=== PATIENT | male | born 1950 | race Asian ===

== ENCOUNTER 2016-12-31 07:35 | Outpatient (CLI) | payer MEDICARE, OTHER ==
--- NOTE | 2016-12-31 09:12 | Ultrasound Report ---
AORTA SCREEN: 12/31/2016 CLINICAL INDICATION: Smoking history. TECHNIQUE: Real-time scanning was performed with independent sales representative static images obtained. FINDINGS: The abdominal aorta is normal in caliber, measuring 2.3 cm proximally, 1.8 cm in the mid p ortion, and 1.8 cm distally. The iliacs are normal in caliber. No free fluid is present. IMPRESSION: NO EVIDENCE OF ABDOMINAL AORTIC ANEURYSM. JOB #: [id number] EXT JOB #:[id number]
== END 2016-12-31 07:36 | disposition home or self-care (01) ==
LOC: DI 07:35
PROVIDERS: ATTEND Internal Medicine
DX: Z13.6 Encounter for screening for cardiovascular disorders (principal)
CPT/HCPCS: 76706

== ENCOUNTER 2017-02-17 11:26 | Outpatient (CLI) | payer MEDICARE, OTHER ==
--- NOTE | 2017-02-17 17:16 | CT Report ---
CT CHEST WITHOUT CONTRAST: 02/17/2017 CLINICAL INDICATION: Followup left apical infiltrate. TECHNIQUE: Axial CT images of the chest were obtained without intravenous contrast. [facility]2016 is available, but images are not yet available for direct comparison. If they become available, an addendum will be issued. FINDINGS: The heart and great vessels are unremarkable. No hilar or mediastinal lymphadenopathy is present. Calcified granulomas are noted at the left apex, and fibrosis and emphysema are noted. No suspicious pulmonary nodule or mass lesion is appreciated. No effusion or pneumothorax is seen. Connelly ited evaluation of upper abdominal structures demonstrates a liver cyst. The adrenal glands are unre markable. Osseous structures demonstrate degenerative changes. IMPRESSION: CHANGES OF OLD GRANULOMATOUS DISEASE, EMPHYSEMA, AND FIBROSIS. NO FOCAL INFILTRATE OR S USPICIOUS PULMONARY NODULE IS APPRECIATED. If outside films become available, an addendum will be issued. In accordance with CT protocol optimization, one or more of the following dose reduction techniques w ere utilized for this exam: automated exposure control, adjustment of mA and/or KV based on patient size, or use of iterative reconstructive technique. JOB #: [id number] EXT JOB #:[id number]
== END 2017-02-17 11:27 | disposition home or self-care (01) ==
LOC: DI 11:26
PROVIDERS: ATTEND Internal Medicine
DX: J43.9 Emphysema, unspecified (principal); J84.10 Pulmonary fibrosis, unspecified
CPT/HCPCS: 71250

== ENCOUNTER 2017-03-23 10:52 | Outpatient (CLI) | payer MEDICARE, OTHER ==
--- NOTE | 2017-03-23 13:16 | XRAY Report ---
TWO VIEW CHEST: 03/23/2017 CLINICAL INDICATION: Cough. FINDINGS: Frontal and lateral views of the chest demonstrate a normal cardiac silhouette. The lungs demonstrate emphysema and fibrosis, similar to CT of 02/17/2017. No new infiltrate, effusion, or pneu mothorax is present. IMPRESSION: EMPHYSEMA AND FIBROSIS. JOB #: [id number] EXT JOB #:[id number]
== END 2017-03-23 10:53 | disposition home or self-care (01) ==
LOC: DI.S 10:52
PROVIDERS: ATTEND Nurse Practitioner Family
DX: J43.9 Emphysema, unspecified (principal); J84.10 Pulmonary fibrosis, unspecified; J45.909 Unspecified asthma, uncomplicated
CPT/HCPCS: 71020

== ENCOUNTER 2017-08-10 11:56 | Outpatient (CLI) | payer MEDICARE, OTHER ==
[2017-08-10] MEDS ORDERED: GADOBUTROL 7.5 MMOL/7.5 ML VIAL ONE (12:20)
[2017-08-10 12:31] LABS: CREATININE 1.3 mg/dL (0.6-1.2)
[2017-08-10] MEDS ORDERED: GADOBUTROL 7.5 MMOL/7.5 ML VIAL IVP ONE (13:43)
--- NOTE | 2017-08-11 10:51 | MRI Report ---
EXAM: MRI SOFT TISSUE NECK WITHOUT AND WITH CONTRAST EXAM DATE: 08/10/2017 02:24 PM. CLINICAL HISTORY: Mass palpated on the right side of thyroid/throat. COMPARISON: None. TECHNIQUE: Multiplanar, multisequence T1-weighted and fluid-sensitive MR sequences of the neck soft t issues were performed. Other: None. IV Contrast: 5 mL Gadavist. FINDINGS: The study is limited by patient motion. During the study patient was repositioned after contrast inje ction with the precontrast and post contrast images not being aligned. No mass is present in either parotid gland or submandibular gland. The thyroid gland is not enlarged. No mass is present in the nasopharynx. The parapharyngeal fat is symmetric. No mass is present in the floor of mouth. No mass is seen in the region of either palatine tonsil. No bulky or cystic/necrotic lymphadenopathy is identified along either internal jugular chain. No marker is identified. No enhancing mass is identified in the visualized brain parenchyma. IMPRESSION: 1. The study is significantly limited by patient motion degradation. 2. No suspicious soft tissue mass is identified in the neck. 3. No bulky lymphadenopathy is seen in the neck. 4. No focal fluid collection to suggest abscess is present in the neck. [facility] Referring Provider Line: [phone] SITE ID: [id number]
== END 2017-08-10 11:57 | disposition home or self-care (01) ==
LOC: LAB 11:56
PROVIDERS: ATTEND Nurse Practitioner Family
DX: R22.1 Localized swelling, mass and lump, neck (principal)
CPT/HCPCS: 36415; 70543; 82565; A9585

== ENCOUNTER 2018-01-07 12:17 | Outpatient (CLI) | payer MEDICARE, OTHER ==
--- NOTE | 2018-01-09 01:36 | Ultrasound Report ---
Procedure Date: 01/07/2018 Accession Number: [id number] / [id number] Procedure: US - Carotid Doppler Complete CPT Code: FULL RESULT: EXAM: CAROTID DOPPLER ULTRASOUND EXAM DATE: 01/07/2018 01:34 PM. CLINICAL HISTORY: Vertigo, headaches. COMPARISON: MR neck 08/10/2017. TECHNIQUE: Real-time sonographic vascular imaging was performed by the foot miter operator through the carotid arterial system with a linear transducer utilizing color-flow, Doppler flow and spectral analysis. Multiple technical account representative static images were saved for review. FINDINGS: Right: RCCA Prox: PSV 96 cm/sec. RCCA Dist: PSV 64 cm/sec, EDV 18 cm/sec. RECA: PSV 90 cm/sec. R Bulb: PSV 57 cm/sec, EDV 17 cm/sec, ICA/CCA ratio 0.89. JEFF Prox: PSV 48 cm/sec, EDV 17 cm/sec, ICA/CCA ratio 0.75. JEFF Mid: PSV 49 cm/sec, EDV 17 cm/sec, ICA/CCA ratio 0.76. JEFF Dist: PSV 65 cm/sec, EDV 24 cm/sec, ICA/CCA ratio 1.0. RVA: PSV 48 cm/sec. RVA flow direction: Antegrade. Left: LCCA Prox: PSV 99 cm/sec. LCCA Dist: PSV 74 cm/sec, EDV 15 cm/sec. LECA: PSV 85 cm/sec. L Bulb: PSV 57 cm/sec, EDV 14 cm/sec, ICA/CCA ratio 0.77. LICA Prox: PSV 37 cm/sec, EDV 13 cm/sec, ICA/CCA ratio 0.50. LICA Mid: PSV 55 cm/sec, EDV 22 cm/sec, ICA/CCA ratio 0.74. LICA Dist: PSV 58 cm/sec, EDV 22 cm/sec, ICA/CCA ratio 0.78. LVA: PSV 62 cm/sec. LVA flow direction: Antegrade. Other: Cardiac arrhythmia. IMPRESSION: Negative carotid ultrasound. No hemodynamically significant stenosis seen. Validated velocity measurements with angiographic measurements and velocity criteria are extrapolated from diameter data as defined by the Society of Radiologists in Ultrasound Consensus Conference Radiology 2003; 229;340-346. [facility]
== END 2018-01-07 12:18 | disposition home or self-care (01) ==
LOC: DI 12:17
PROVIDERS: ATTEND Nurse Practitioner Family
DX: R42 Dizziness and giddiness (principal); R51 Headache
CPT/HCPCS: 93880

== ENCOUNTER 2018-06-09 10:35 | Outpatient (CLI) | payer MEDICARE, OTHER | END 2018-06-09 10:36 | disposition home or self-care (01) | LOC: LAB.F 10:35 | PROVIDERS: ATTEND Internal Medicine Critical Care Medicine | DX: R91.8 Other nonspecific abnormal finding of lung field (principal) | CPT/HCPCS: 36415; 80053; 81599; 85651; 86021; 86038; 86140; 86200; 86430 ==

== ENCOUNTER 2018-06-12 10:12 | Outpatient (CLI) | payer MEDICARE, OTHER ==
[2018-06-12 11:44] LABS: ALBUMIN 3.5 g/dL (3.2-5.5); ALBUMIN/GLOBULIN RATIO 1.3 (1.0-2.2); ALKALINE PHOSPHATASE 53 IU/L (42-121); ALT ALANINE AMINOTRANSFERASE 23 IU/L (10-60); AST ASPARTATE AMINOTRANSFERASE 21 IU/L (10-42); BILIRUBIN,TOTAL 0.7 mg/dL (0.2-1.0); BUN - BLOOD UREA NITROGEN 21 mg/dL (6-20); CALCIUM 8.9 mg/dL (8.5-10.3); CARBON DIOXIDE - CO2 30 mmol/L (21-32); CHLORIDE 104 mmol/L (101-111); GFR - MDRD 74 (>89); GLUCOSE 76 mg/dL (70-100); SODIUM 139 mmol/L (135-145); TOTAL PROTEIN 6.1 g/dL (6.7-8.2)
[2018-06-12 11:55] LABS: CRP - C-REACTIVE PROTEIN < 1.0 mg/dL (0-1.0)
[2018-06-12 12:13] LABS: RHEUMATOID FACTOR NEGATIVE (Negative)
== END 2018-06-12 10:13 | disposition home or self-care (01) ==
LOC: LAB 10:12
PROVIDERS: ATTEND Internal Medicine Critical Care Medicine
DX: R91.8 Other nonspecific abnormal finding of lung field (principal)
CPT/HCPCS: 36415; 80053; 81599; 85651; 86021; 86038; 86140; 86200; 86430; 87070; 87205

== ENCOUNTER 2018-06-14 09:00 | Outpatient (CLI) | payer MEDICARE, OTHER | END 2018-06-14 23:59 | disposition home or self-care (01) | LOC: LAB.R 09:00 | PROVIDERS: ATTEND Internal Medicine Critical Care Medicine | DX: R91.8 Other nonspecific abnormal finding of lung field (principal) | CPT/HCPCS: 81599; 87070; 87205 ==

== ENCOUNTER 2018-08-15 08:11 | Outpatient (CLI) | payer MEDICARE, OTHER | END 2018-08-15 08:12 | disposition home or self-care (01) | LOC: LAB.F 08:11 | PROVIDERS: ATTEND Internal Medicine Endocrinology, Diabetes & Metabolism | DX: E29.1 Testicular hypofunction (principal) | CPT/HCPCS: 36415; 84270; 84402; 84403 ==

== ENCOUNTER 2018-09-22 17:11 | Outpatient (CLI) | payer MEDICARE, OTHER ==
--- NOTE | 2018-09-25 10:13 | Ultrasound Report ---
Reason: LOWER URINARY TRACT SYMPTOMS DUE TO BENIGN PROSTAT Procedure Date: 09/22/2018 Accession Number: [id number] / [id number] Procedure: US - Bladder CPT Code: FULL RESULT: EXAM: PELVIS ULTRASOUND, LIMITED EXAM DATE: 09/22/2018 05:47 PM. CLINICAL HISTORY: Lower urinary tract symptoms due to benign prostatic hypertrophy. COMPARISON: None. TECHNIQUE: Real-time scanning was performed with static images obtained. FINDINGS: Ultrasound of the bladder is performed with a prevoid volume of 350 mL, 9.9 x 7.6 x 8.8 cm, with the bladder wall thickened and trabeculated. Bilateral ureteral jets are identified. The extracystic prostate measures 5.9 x 5.8 x 5.6 cm for a volume of 101 mL. Within the bladder is the suggestion of a 3.7 x 2.9 x 5.1 cm mass which demonstrates vascularity by color Doppler. It is unclear whether this is in contiguity with the prostate, i.e., prostatic hypertrophy lifting the bladder base or separate. IMPRESSION: Additional imaging is necessary to clarify the above findings. The patient should return for additional ultrasound imaging by the radiologist to clarify the findings. [facility]
== END 2018-09-22 17:12 | disposition home or self-care (01) ==
LOC: DI 17:11
PROVIDERS: ATTEND Internal Medicine
DX: N40.1 Benign prostatic hyperplasia with lower urinary tract symptoms (principal)
CPT/HCPCS: 76857

== ENCOUNTER 2018-09-29 12:07 | Outpatient (CLI) | payer MEDICARE, OTHER ==
--- NOTE | 2018-09-29 15:25 | Ultrasound Report ---
Reason: LOWER URINARY TRACT SYMPTOMS DUE TO BENIGN PROSTAT Procedure Date: 09/29/2018 Accession Number: [id number] / [id number] Procedure: US - Bladder CPT Code: FULL RESULT: EXAM: PELVIS ULTRASOUND, LIMITED EXAM DATE: 09/29/2018 12:35 PM. CLINICAL HISTORY: Lower urinary tract symptoms due to benign prostatic hypertrophy. COMPARISON: BLADDER 09/22/2018 5:19 PM. TECHNIQUE: Real-time scanning was performed with static images obtained. FINDINGS: The study is interpreted in conjunction with initial ultrasound images obtained 09/22/2018. Additional real-time images are obtained by the radiologist. These demonstrate the bladder mass to be in contiguity with the prostate, favoring a prostatic origin. IMPRESSION: Markedly enlarged prostate. [facility]
== END 2018-09-29 12:08 | disposition home or self-care (01) ==
LOC: DI 12:07
PROVIDERS: ATTEND Internal Medicine
DX: Z01.818 Encounter for other preprocedural examination (principal); N40.1 Benign prostatic hyperplasia with lower urinary tract symptoms
CPT/HCPCS: 76857

== ENCOUNTER 2018-12-29 08:48 | Outpatient (CLI) | payer MEDICARE, OTHER | END 2018-12-29 08:49 | disposition home or self-care (01) | LOC: LAB.F 08:48 | PROVIDERS: ATTEND Physician Assistant | DX: R79.89 Other specified abnormal findings of blood chemistry (principal) | CPT/HCPCS: 36415; 84153; 84403 ==

== ENCOUNTER 2019-01-01 09:32 | Outpatient (CLI) | payer MEDICARE, OTHER ==
[2019-01-01 18:20] LABS: PSA TOTAL 10.982 ng/mL (0.000-2.000)
== END 2019-01-01 09:33 | disposition home or self-care (01) ==
LOC: LAB.F 09:32
PROVIDERS: ATTEND Physician Assistant
DX: R79.89 Other specified abnormal findings of blood chemistry (principal)
CPT/HCPCS: 36415; 84153; 84403

== ENCOUNTER 2019-02-19 11:06 | Outpatient (CLI) | payer MEDICARE, OTHER ==
[2019-02-19 17:58] LABS: CALCIUM 8.9 mg/dL (8.5-10.3); CREATININE 1.1 mg/dL (0.6-1.2)
[2019-02-19 18:31] LABS: HB2 TOTAL 13.5 g/dL; HEMOGLOBIN A1C 0.64 g/dL; HEMOGLOBIN A1C % 6.5 % (4.6-6.2)
== END 2019-02-19 11:07 | disposition home or self-care (01) ==
LOC: LAB.S 11:06
PROVIDERS: ATTEND Internal Medicine Endocrinology, Diabetes & Metabolism
DX: E11.65 Type 2 diabetes mellitus with hyperglycemia (principal); M81.0 Age-related osteoporosis without current pathological fracture
CPT/HCPCS: 36415; 80048; 83036

== ENCOUNTER 2019-03-10 11:24 | Outpatient (CLI) | payer MEDICARE, OTHER ==
[2019-03-10 11:50] LABS: HGB - HEMOGLOBIN 13.1 g/dL (14.0-18.0); MEAN CORPUSCULAR HEMOGLOBIN 23.2 pg (27.0-31.0); MEAN CORPUSCULAR HGB CONC 30.9 g/dL (32.0-36.0); MEAN CORPUSCULAR VOLUME 75.2 fL (80.0-94.0); MEAN PLATELET VOLUME 11.7 fL (7.4-11.4); RED BLOOD COUNT 5.64 10^6/uL (4.70-6.10); RED CELL DISTRIBUTION WIDTH 17.7 % (12.0-15.0); WHITE BLOOD COUNT 13.8 x10^3/uL (4.8-10.8)
== END 2019-03-10 11:25 | disposition home or self-care (01) ==
LOC: LAB 11:24
PROVIDERS: ATTEND Physician Assistant
DX: Z01.818 Encounter for other preprocedural examination (principal)
CPT/HCPCS: 36415; 80048; 85027; 93005

== ENCOUNTER 2019-08-15 09:54 | Outpatient (CLI) | payer MEDICARE, OTHER ==
[2019-08-15 18:04] LABS: HB2 TOTAL 12.9 g/dL; HEMOGLOBIN A1C 0.6 g/dL; HEMOGLOBIN A1C % 6.4 % (4.6-6.2)
[2019-08-15 18:10] LABS: ALBUMIN 3.9 g/dL (3.2-5.5); ALBUMIN/GLOBULIN RATIO 1.4 (1.0-2.2); BILIRUBIN,TOTAL 0.6 mg/dL (0.2-1.0); CALCIUM 8.9 mg/dL (8.5-10.3); TOTAL PROTEIN 6.6 g/dL (6.7-8.2)
== END 2019-08-15 09:55 | disposition home or self-care (01) ==
LOC: LAB.S 09:54
PROVIDERS: ATTEND Internal Medicine Endocrinology, Diabetes & Metabolism
DX: M81.0 Age-related osteoporosis without current pathological fracture (principal); E11.65 Type 2 diabetes mellitus with hyperglycemia; E55.9 Vitamin D deficiency, unspecified
CPT/HCPCS: 36415; 80053; 82306; 83036; 83970

== ENCOUNTER 2021-06-05 10:37 | Outpatient (CLI) | payer MEDICARE, OTHER ==
[2021-06-05 15:53] LABS: ESTIMATED AVERAGE GLUCOSE 134 mg/dL (70-100); HEMOGLOBIN A1c% 6.3 % (4.27-6.07)
== END 2021-06-05 10:38 | disposition home or self-care (01) ==
LOC: LAB.S 10:37
DX: E11.9 Type 2 diabetes mellitus without complications (principal)
CPT/HCPCS: 36415; 83036

== ENCOUNTER 2021-12-14 13:36 | Outpatient (CLI) | payer MEDICARE ==
[2021-12-14 19:59] LABS: BASOPHILS # (AUTO) 0.1 10^3/uL (0.0-0.1); BASOPHILS % (AUTO) 0.5 %; EOSINOPHILS # (AUTO) 0.1 10^3/uL (0.0-0.7); EOSINOPHILS % (AUTO) 0.5 %; HCT - HEMATOCRIT 39.7 % (42.0-52.0); LYMPHOCYTES # (AUTO) 0.5 10^3/uL (1.5-3.5); LYMPHOCYTES % (AUTO) 4.1 %; MEAN CORPUSCULAR HEMOGLOBIN 22.9 pg (27.0-31.0); MEAN CORPUSCULAR HGB CONC 30.2 g/dL (32.0-36.0); MEAN CORPUSCULAR VOLUME 75.6 fL (80.0-94.0); MONOCYTES # (AUTO) 0.7 10^3/uL (0.0-1.0); NEUTROPHILS # (AUTO) 10.6 10^3/uL (1.5-6.6); NEUTROPHILS % (AUTO) 88.2 %; PLT - PLATELET COUNT 196 10^3/uL (130-450); RED BLOOD COUNT 5.25 10^6/uL (4.70-6.10)
[2021-12-14 20:14] LABS: ALBUMIN 3.5 g/dL (3.2-5.5); ALBUMIN/GLOBULIN RATIO 1.3 (1.0-2.2); ALKALINE PHOSPHATASE 48 IU/L (42-121); ALT ALANINE AMINOTRANSFERASE 17 IU/L (10-60); AST ASPARTATE AMINOTRANSFERASE 17 IU/L (10-42); BILIRUBIN,TOTAL 0.5 mg/dL (0.2-1.0); BUN - BLOOD UREA NITROGEN 25 mg/dL (6-20); CALCIUM 8.8 mg/dL (8.5-10.3); CARBON DIOXIDE - CO2 27 mmol/L (21-32); CHLORIDE 104 mmol/L (101-111); CHOL/HDL RATIO 3.2 (<5.0); CHOLESTEROL 235 mg/dL; CREATININE 1.2 mg/dL (0.6-1.2); GFR - MDRD 60 (>89); GLUCOSE 157 mg/dL (70-100); HDL CHOLESTEROL 74 mg/dL; LDL CHOLESTEROL,CALCULATED 118 mg/dL; LDL/HDL RATIO 1.6 (<3.6); POTASSIUM 3.7 mmol/L (3.5-5.0); SODIUM 141 mmol/L (135-145); TOTAL PROTEIN 6.1 g/dL (6.7-8.2); TRIGLYCERIDES 213 mg/dL; URIC ACID 4.3 mg/dL (2.6-7.2); VLDL CHOLESTEROL 43 mg/dL
[2021-12-14 23:03] LABS: ESTIMATED AVERAGE GLUCOSE 134 mg/dL (70-100); HEMOGLOBIN A1c% 6.3 % (4.27-6.07)
== END 2021-12-14 13:37 | disposition home or self-care (01) ==
LOC: LAB.S 13:36
PROVIDERS: ATTEND Internal Medicine
DX: E11.9 Type 2 diabetes mellitus without complications (principal); M10.00 Idiopathic gout, unspecified site; R97.20 Elevated prostate specific antigen [PSA]
CPT/HCPCS: 36415; 80053; 80061; 83036; 83721; 84153; 84550; 85025

== ENCOUNTER 2022-04-22 09:22 | Outpatient (CLI) | payer MEDICARE ==
[2022-04-22 14:49] LABS: CALCIUM 8.8 mg/dL (8.5-10.3); CREATININE 1.3 mg/dL (0.6-1.2); POTASSIUM 3.7 mmol/L (3.5-5.0)
[2022-04-22 20:57] LABS: ESTIMATED AVERAGE GLUCOSE 123 mg/dL (70-100); HEMOGLOBIN A1c% 5.9 % (4.27-6.07)
== END 2022-04-22 09:23 | disposition home or self-care (01) ==
LOC: LAB.S 09:22
PROVIDERS: ATTEND Registered Nurse
DX: E11.9 Type 2 diabetes mellitus without complications (principal); R60.0 Localized edema
CPT/HCPCS: 36415; 80048; 83036; 85379

== ENCOUNTER 2022-04-27 11:16 | Outpatient (CLI) | payer MEDICARE ==
--- NOTE | 2022-04-27 12:06 | Ultrasound Report ---
PROCEDURE: Duplex Ext Veins Left INDICATIONS: EDEMA TECHNIQUE: Real-time imaging, as well as color and pulse Doppler interrogation, were performed of the lower extr emity deep veins from the inguinal ligament to the popliteal fossa. COMPARISON: None. FINDINGS: The deep veins are normally compressible, and free of intraluminal thrombus. Color and pu lse Doppler demonstrate normal phasic intraluminal flow. There is normal augmentation response to di stal compression maneuver. IMPRESSION: No deep venous thrombosis. Reviewed by: Yahaira Chong MD on 04/27/2022 12:05 PM PDT Approved by: Yahaira Chong MD on 04/27/2022 12:05 PM PDT Station ID: [id number]
== END 2022-04-27 11:17 | disposition home or self-care (01) ==
LOC: DI 11:16
PROVIDERS: ATTEND Registered Nurse
DX: R60.0 Localized edema (principal)

== ENCOUNTER 2022-09-03 08:00 | Outpatient (CLI) | payer MEDICARE ==
--- NOTE | 2022-09-03 16:46 | XRAY Report ---
PROCEDURE: Elbow 2 View LT INDICATIONS: LEFT ELBOW INJURY TECHNIQUE: 2 views of the elbow were acquired. COMPARISON: None FINDINGS: Bones: No fractures or dislocations. No suspicious bony lesions. Soft tissues: No elbow joint effusion. No suspicious soft tissue calcifications. IMPRESSION: No visualized acute fracture or dislocation. However, occult injury cannot be excluded. Recommend leydi rt interval imaging follow-up in 7-10 days as clinically indicated for additional evaluation. Reviewed by: Yahaira Chong MD on 09/03/2022 4:45 PM PST Approved by: Yahaira Chong MD on 09/03/2022 4:45 PM PST Station ID: [id number]
== END 2022-09-03 23:59 | disposition home or self-care (01) ==
LOC: DI.S 08:00
PROVIDERS: ATTEND Physician Assistant
DX: S51.012A Laceration without foreign body of left elbow, initial encounter (principal); M81.0 Age-related osteoporosis without current pathological fracture

== ENCOUNTER 2023-08-12 14:32 | Emergency (ER) | payer MEDICARE ==
[2023-08-12] MEDS ORDERED: SODIUM CHLORIDE 0.9% 1,000 ML IV STA ×2 (14:44→15:24)
[2023-08-12 15:06] LABS: BASOPHILS # (AUTO) 0.1 10^3/uL (0.0-0.1); BASOPHILS % (AUTO) 0.4 %; EOSINOPHILS % (AUTO) 0.3 %; HCT - HEMATOCRIT 43.1 % (42.0-52.0); HGB - HEMOGLOBIN 12.7 g/dL (14.0-18.0); LYMPHOCYTES # (AUTO) 0.5 10^3/uL (1.5-3.5); LYMPHOCYTES % (AUTO) 4.1 %; MEAN CORPUSCULAR HEMOGLOBIN 22.5 pg (27.0-31.0); MEAN CORPUSCULAR HGB CONC 29.5 g/dL (32.0-36.0); MEAN CORPUSCULAR VOLUME 76.3 fL (80.0-94.0); MONOCYTES # (AUTO) 0.8 10^3/uL (0.0-1.0); MONOCYTES % (AUTO) 6.6 %; NEUTROPHILS % (AUTO) 87.5 %; PLT - PLATELET COUNT 217 10^3/uL (130-450); RED BLOOD COUNT 5.65 10^6/uL (4.70-6.10); WHITE BLOOD COUNT 11.5 x10^3/uL (4.8-10.8)
[2023-08-12 15:33] LABS: ALBUMIN 3.9 g/dL (3.2-5.5); ALBUMIN/GLOBULIN RATIO 1.9 (1.0-2.2); BILIRUBIN,TOTAL 0.6 mg/dL (0.2-1.0); CALCIUM 9.2 mg/dL (8.5-10.3); CREATININE 1.2 mg/dL (0.6-1.3)
[2023-08-12 15:39] LABS: TROPONIN I HIGH SENSITIVITY 205.4 ng/L (2.3-19.7)
--- NOTE | 2023-08-12 15:52 | XRAY Report ---
PROCEDURE: Chest 1V INDICATIONS: near syncope TECHNIQUE: One view of the chest was acquired. COMPARISON: CT chest 02/17/2017. FINDINGS: Surgical changes and devices: None. Lungs and pleura: No pleural effusions or pneumothorax. Lungs are clear. Mediastinum: Mediastinal contours appear normal. Heart size is mildly enlarged. Bones and chest wall: No suspicious bony lesions. Overlying soft tissues appear unremarkable. IMPRESSION: No acute cardiopulmonary process. Reviewed by: Yahaira Chong MD on 08/12/2023 3:50 PM [facility] Approved by: Yahaira Chong MD on 08/12/2023 3:50 PM [facility] Station ID: [id number]
[2023-08-12 15:53] LABS: PHOSPHORUS 4.3 mg/dL (2.5-5.0)
[2023-08-12] MEDS ORDERED: METOPROLOL 5 MG/5 ML VIAL IVP STA (16:15)
--- NOTE | 2023-08-12 16:16 | ED Physician Documentation ---
History of Present Illness - Stated complaint Stated Complaint: HIGH HR - Chief complaint Chief Complaint: Cardiac - History obtained from History obtained from: Patient, Family - History of Present Illness Timing: How many days ago (2) Pain level max: 0 Pain level now: 0 - Additonal information Additional information: 72-year-old male presents to the emergency department stating for the past 2 to 3 days he has had intermittent elevations of his heart rate. This has been accompanied by lightheadedness, dizziness and near syncope. No chest pain. He has felt occasionally short of breath. Does not have any cardiac history. Has never seen a early childhood associate teacher. No cough. No congestion. No fevers. No medication changes. Patient is a former smoker. Has a history of hypertension, asthma and diabetes. Review of Systems Constitutional: denies: Fever, Chills Ears: denies: Ear pain Nose: denies: Rhinorrhea / runny nose, Congestion GI: denies: Vomiting, Diarrhea Skin: denies: Rash Musculoskeletal: denies: Neck pain, Back pain Neurologic: denies: Headache, Head injury PD PAST MEDICAL HISTORY - Past Medical History Past Medical History: Yes Cardiovascular: Hypertension Respiratory: Asthma, Shortness of breath Neuro: None Endocrine/Autoimmune: Type 2 diabetes HEENT: None Musculoskeletal: Gout - Past Surgical History Past Surgical History: Yes Ortho: Other HEENT: Cataracts - Present Medications Home Medications: Ambulatory Orders Medication Instructions Recorded Confirmed Albuterol 2.5 mg INH Q4H PRN 09/12/18 08/12/23 Budesonide/Formoterol Fumarate 10.2 gm IH BID 09/12/18 03/01/19 [Symbicort 160-4.5 Mcg Inhaler] Calcium Carbonate/Vitamin D3 1 each PO DAILY 09/12/18 08/12/23 [Calcium 250-D Tablet] Cholecalciferol (Vitamin D3) 1,000 unit PO TID 09/12/18 08/12/23 [Vitamin D3] Theophylline [Theodur] 300 mg PO BID 09/12/18 03/01/19 allopurinoL [Allopurinol] 300 mg PO DAILY PM 09/12/18 08/12/23 predniSONE [Prednisone] 12 mg PO TID 09/12/18 08/12/23 Clobetasol 0.05% Oint [Temovate 1 applic TOP DAILY 08/12/23 08/12/23 0.05% Oint] Denosumab [Prolia] 1 syr INJ UD 08/12/23 08/12/23 Fluocinonide 0.05% Cream [Lidex 1 appful TOP DAILY 08/12/23 08/12/23 0.05% Cream] Losartan Potassium 25 mg PO DAILY 08/12/23 08/12/23 - Allergies Allergies/Adverse Reactions: Allergies Allergy/AdvReac Type Severity Reaction Status Date / Time ciprofloxacin [From Cipro] Allergy Itching Verified 08/12/23 15:43 egg Allergy Unknown Verified 08/12/23 15:43 nuts Allergy Unknown Uncoded 08/12/23 15:43 seafood Allergy Unknown Uncoded 08/12/23 15:43 - Social History Does the pt smoke?: Yes Smoking Status: Former smoker Does the pt drink ETOH?: No Does the pt have substance abuse?: No - Immunizations Immunizations are current?: Yes PD ED PE NORMAL - Vitals Vital signs reviewed: Yes - General General: Alert and oriented X 3, No acute distress - HEENT HEENT: PERRL, Moist mucous membranes - Neck Neck: Supple, no meningeal sign - Cardiac Cardiac: Other (irregularly irregular) - Respiratory Respiratory: No respiratory distress, Clear bilaterally - Abdomen Abdomen: Soft, Non tender, Non distended - Derm Derm: Warm and dry - Extremities Extremities: No edema, No calf tenderness / cord - Neuro Neuro: Alert and oriented X 3 - Psych Psych: Normal mood, Normal affect Results - Vitals Vitals: Vital Signs - 24 hr 08/12/23 08/12/23 08/12/23 14:37 15:48 17:00 Temperature 36.8 C Heart Rate 95 82 112 H Respiratory 16 13 19 Rate Blood Pressure 138/92 H 140/97 H 146/82 H O2 Saturation 98 100 100 08/12/23 08/12/23 19:00 21:00 Temperature Heart Rate 97 106 H Respiratory 19 15 Rate Blood Pressure 122/89 H 98/67 O2 Saturation 96 98 Oxygen O2 Source Room air - EKG (time done) 1535 EKG releavant findings:: EKG personally interpreted by author of this note. Relevant findings are: Rate: Rate (enter#) (85) Rhythm: Other (sinus rhythm/a fib) [place]: Normal QRS: Normal Ischemia: Non specific changes - Labs Labs: Laboratory Tests 08/12/23 08/12/23 08/12/23 14:59 14:59 14:59 WBC 11.5 H RBC 5.65 Hgb 12.7 L Hct 43.1 MCV 76.3 L MCH 22.5 L MCHC 29.5 L RDW 17.0 H Plt Count 217 Neut # (Auto) 10.0 H Lymph # (Auto) 0.5 L [place] # (Auto) 0.8 Eos # (Auto) 0.0 Baso # (Auto) 0.1 Absolute Nucleated RBC 0.00 Nucleated RBC % 0.0 Sodium 141 Potassium 4.0 Chloride 104 Carbon Dioxide 32 Anion Gap 5.0 L BUN 25 H Creatinine 1.2 Estimated GFR (MDRD) 59 L Glucose 108 H Calcium 9.2 Phosphorus 4.3 Magnesium 2.0 Total Bilirubin 0.6 AST 16 ALT 13 Alkaline Phosphatase 38 L Troponin I High Sens 205.4 H* Total Protein 6.0 L Albumin 3.9 Globulin 2.1 Albumin/Globulin Ratio 1.9 Lipase 19 08/12/23 16:39 WBC RBC Hgb Hct MCV MCH MCHC RDW Plt Count Neut # (Auto) Lymph # (Auto) [place] # (Auto) Eos # (Auto) Baso # (Auto) Absolute Nucleated RBC Nucleated RBC % Sodium Potassium Chloride Carbon Dioxide Anion Gap BUN Creatinine Estimated GFR (MDRD) Glucose Calcium Phosphorus Magnesium Total Bilirubin AST ALT Alkaline Phosphatase Troponin I High Sens 226.2 H* Total Protein Albumin Globulin Albumin/Globulin Ratio Lipase - Rads (name of study) cxr Relevant Findings:: Final report received, See rad report (No acute cardiopulmonary process. ) PD Medical Decision Making - ED course Complexity details: reviewed results, re-evaluated patient, considered differential, d/w patient, d/w family ED course: Patient is a 72-year-old male who presents to the emergency department with an irregular heartbeat, lightheadedness, and near syncope. He is found to have an irregular heartbeat, appears to go in and out of atrial fibrillation on the monitor. He has an elevation of his high-sensitivity troponin. Does not have any cardiac history. Patient has a continued increasing elevation of his high sensitivity troponin on repeat testing. Consistent with NSTEMI. Given his new onset atrial fibrillation and NSTEMI. Patient will need to be transferred for cardiac care. Patient was started on Lovenox. Given aspirin. Started on metoprolol for rate control. No beds are available in the region, he will be boarded in the emergency department. Please see Dr. Ramos's note for any care overnight. Patient signed out to Dr. Ramos. This document was made in part using voice recognition software. While efforts are made to proofread this document, sound alike and grammatical errors may occur. Departure - Departure Disposition: 02 Transfer Acute Care Hosp Clinical Impression: NSTEMI (non-ST elevated myocardial infarction), New onset a-fib Condition: Stable Forms: PCP List
[2023-08-12] MEDS ORDERED: ASPIRIN CHEW 81 MG TABLET PO STA (16:30)
[2023-08-12] MEDS ORDERED: ENOXAPARIN 80 MG/0.8 ML SYRINGE SUBQ STA (16:31)
[2023-08-12] MEDS ORDERED: METOPROLOL TARTRATE 50 MG TABLET PO STA (19:36)
[2023-08-12] MEDS ORDERED: ACETAMINOPHEN 500 MG TABLET PO PRN (22:56)
[2023-08-12] MEDS ORDERED: ONDANSETRON 4 MG/2 ML VIAL IVP PRN (22:56)
[2023-08-13 06:17] LABS: BASOPHILS # (AUTO) 0.1 10^3/uL (0.0-0.1); BASOPHILS % (AUTO) 0.8 %; EOSINOPHILS # (AUTO) 0.1 10^3/uL (0.0-0.7); EOSINOPHILS % (AUTO) 1.3 %; HCT - HEMATOCRIT 42.7 % (42.0-52.0); HGB - HEMOGLOBIN 12.7 g/dL (14.0-18.0); LYMPHOCYTES % (AUTO) 9.2 %; MEAN CORPUSCULAR HEMOGLOBIN 22.8 pg (27.0-31.0); MEAN CORPUSCULAR HGB CONC 29.7 g/dL (32.0-36.0); MEAN CORPUSCULAR VOLUME 76.5 fL (80.0-94.0); MONOCYTES # (AUTO) 1.2 10^3/uL (0.0-1.0); MONOCYTES % (AUTO) 10.8 %; NEUTROPHILS # (AUTO) 8.5 10^3/uL (1.5-6.6); NEUTROPHILS % (AUTO) 76.7 %; PLT - PLATELET COUNT 209 10^3/uL (130-450); RED BLOOD COUNT 5.58 10^6/uL (4.70-6.10); RED CELL DISTRIBUTION WIDTH 16.5 % (12.0-15.0); WHITE BLOOD COUNT 11.1 x10^3/uL (4.8-10.8)
[2023-08-13 06:23] LABS: CALCIUM 8.4 mg/dL (8.5-10.3); CREATININE 1.1 mg/dL (0.6-1.3); POTASSIUM 3.9 mmol/L (3.5-4.5)
[2023-08-13] MEDS: PANTOPRAZOLE 40 MG TABLET PO SCH (09:26)
[2023-08-13] MEDS: METOPROLOL TARTRATE 25 MG TABLET PO SCH ×2 (09:37→20:36)
[2023-08-13] MEDS: ENOXAPARIN 100 MG/ML SYRINGE SUBQ SCH ×2 (09:37→20:36)
[2023-08-13] MEDS: ASPIRIN CHEW 81 MG TABLET PO SCH (09:37)
[2023-08-13] MEDS ORDERED: ALBUTEROL NEB 2.5 MG/3 ML INH PRN (11:48)
--- NOTE | 2023-08-13 11:58 | ED Physician Documentation ---
ED Addendum - Addendum Addendum: 08/13/23 11:58 72-year-old gentleman who is boarding in the emergency department pending transfer for non-STEMI. Troponin peaked at 226. He says he is not having any chest pain except for earlier in the day had a "twinge" and he is chest pain- free right now. He is on multiple wait list for transfer. He did ask me to write for his routine/home medications. Clarified the prednisone dose is 10 mg a day, not 12 mg 3 times daily as listed on the chart. Otherwise I wrote for all of his home medications except for theophylline given the non-STEMI and he says he does not take this anymore anyway. Also had to substitute some nebulizers for his usual inhalers. 08/13/23 17:53 He and his expressed some interest in going home. I discussed with him that I still think we should follow the process and get him transferred although no bed is available still. After some discussion he is willing to "wait it out another day."
[2023-08-13] MEDS: FORMOTEROL FUMARATE NEB 20 MCG/2 ML INH SCH ×2 (12:20→20:55)
[2023-08-13] MEDS: predniSONE 5 MG TABLET PO SCH (13:35)
[2023-08-13] MEDS: LOSARTAN 50 MG TABLET PO SCH (13:35)
[2023-08-13] MEDS: CHOLECALCIFEROL 400 UNIT TABLET PO SCH (13:36)
[2023-08-13] MEDS: BUDESONIDE 0.5 MG/2 ML NEB INH SCH (20:55)
[2023-08-13] MEDS ORDERED: allopurinoL 100 MG TABLET PO SCH (21:00)
[2023-08-14] MEDS: FORMOTEROL FUMARATE NEB 20 MCG/2 ML INH SCH (08:06)
[2023-08-14] MEDS: BUDESONIDE 0.5 MG/2 ML NEB INH SCH (08:06)
[2023-08-14] MEDS: PANTOPRAZOLE 40 MG TABLET PO SCH (08:16)
[2023-08-14] MEDS: ENOXAPARIN 100 MG/ML SYRINGE SUBQ SCH (08:34)
[2023-08-14] MEDS: LOSARTAN 50 MG TABLET PO SCH (08:35)
[2023-08-14] MEDS: CHOLECALCIFEROL 400 UNIT TABLET PO SCH (08:35)
[2023-08-14] MEDS: ASPIRIN CHEW 81 MG TABLET PO SCH (08:35)
[2023-08-14] MEDS: METOPROLOL TARTRATE 25 MG TABLET PO SCH (08:35)
[2023-08-14] MEDS: predniSONE 5 MG TABLET PO SCH (08:35)
--- NOTE | 2023-08-14 12:21 | ED Physician Documentation ---
ED Addendum - Addendum Addendum: 08/14/23 12:19 The patient was resting comfortably this morning. He was reading a book. He states he has not had any chest pain or feeling of lightheadedness. He had ambulated to the bathroom a couple of times without any of the similar lightheaded episodes he had had previously. Monitor has been showing sinus rhythm. At this point we are still waiting to hear back from [facility] or other hospitals regarding any bed availability for transfer. It is midmorning so most facilities will not have really decided for full discharges etc. The patient states he will bear with us to see if any beds become available today. If not, he is asking about other options or alternative plans to further evaluate. At this point we will just await word from other facilities to see if any openings occur before advancing other discussions.
[2023-08-14] MEDS ORDERED: APIXABAN 5 MG TABLET PO STA (16:47)
[2023-08-14] MEDS ORDERED: METOPROLOL SUCCINATE 50 MG TABLET PO STA (16:47)
--- NOTE | 2023-08-14 16:52 | ED Physician Documentation ---
ED Addendum - Addendum Addendum: 08/14/23 16:51 He has continued to voice this frustration at the weight and transfer to higher level of care which is completely understandable as he has been here for about 50 hours otherwise he has been fairly stable though since he got here on the beta-peter. He at this point wants to sign out AGAINST MEDICAL ADVICE and does not understand there is some risk. To diminish the risk I did prescribe metoprolol 25 mg p.o. twice daily and Eliquis 5 mg p.o. twice daily and sent a e mail to his primary care physician outlining the need for close cardiology follow-up. Disposition AGAINST MEDICAL ADVICE Condition: Guarded Diagnosis: 1. Tachyarrhythmia 2. Elevated troponin
[2023-08-14 17:38] VITALS: BP 132/86; O2SAT 96
== END 2023-08-14 17:34 | disposition left against medical advice (07) ==
LOC: ED 14:32
DX: Z87.891 Personal history of nicotine dependence (principal); I21.4 Non-ST elevation (NSTEMI) myocardial infarction; I48.91 Unspecified atrial fibrillation; I10 Essential (primary) hypertension; Z75.1 Person awaiting admission to adequate facility elsewhere; Z53.29 Procedure and treatment not carried out because of patient's decision for other reasons
CPT/HCPCS: 36415; 71045; 80048; 80053; 83690; 83735; 84100; 84484; 85025; 87635; 93005; 94640; 96372; 96374; 99284; A9270; J1650; J7512; J7626

== ENCOUNTER 2023-10-28 07:00 | Outpatient (CLI) | payer MEDICARE ==
--- NOTE | 2023-10-28 14:49 | XRAY Report ---
PROCEDURE: Hip w/Pelvis 2-3V LT INDICATIONS: LEFT HIP PAIN TECHNIQUE: 3 views of the hip were acquired. COMPARISON: None. FINDINGS: Bones: No fractures or dislocations. No suspicious bony lesions. Mild osteoarthritic changes in hip s and sacroiliac joints bilaterally. Moderate to severe degenerative disc and facet disease in the lo wer lumbar spine. Soft tissues: There are calcific densities adjacent to the greater trochanter. Atherosclerotic calci fications noted. IMPRESSION: 1. No acute bony abnormality. 2. 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 3. Calcific densities adjacent to the greater trochanter, suggesting calcific bursitis or tendinitis. Reviewed by: Ariane Griffin MD on 10/28/2023 2:47 PM PDT Approved by: Ariane Griffin MD on 10/28/2023 2:47 PM PDT Station ID: [id number]
== END 2023-10-28 23:59 | disposition home or self-care (01) ==
LOC: DI.S 07:00
PROVIDERS: ATTEND Registered Nurse
DX: M16.0 Bilateral primary osteoarthritis of hip (principal); M47.898 Other spondylosis, sacral and sacrococcygeal region; M25.852 Other specified joint disorders, left hip

== ENCOUNTER 2024-01-18 09:07 | Outpatient (CLI) | payer MEDICARE ==
[2024-01-18 15:20] LABS: THYROID STIMULATING HORMONE 1.02 uIU/mL (0.34-5.60)
[2024-01-18 15:26] LABS: ALBUMIN 3.7 g/dL (3.2-5.5); ALBUMIN/GLOBULIN RATIO 1.5 (1.0-2.2); ALKALINE PHOSPHATASE 40 IU/L (42-121); ALT ALANINE AMINOTRANSFERASE 24 IU/L (10-60); AST ASPARTATE AMINOTRANSFERASE 18 IU/L (10-42); BILIRUBIN,TOTAL 0.5 mg/dL (0.2-1.0); BUN - BLOOD UREA NITROGEN 28 mg/dL (6-20); CALCIUM 9.3 mg/dL (8.5-10.3); CARBON DIOXIDE - CO2 31 mmol/L (21-32); CHLORIDE 106 mmol/L (101-111); CHOL/HDL RATIO 2.2 (<5.0); CHOLESTEROL 163 mg/dL; CREATININE 1.1 mg/dL (0.6-1.3); GFR - MDRD 65 (>89); GLUCOSE 75 mg/dL (74-104); HDL CHOLESTEROL 73 mg/dL; LDL CHOLESTEROL,CALCULATED 64 mg/dL; LDL/HDL RATIO 0.9 (<3.6); POTASSIUM 3.8 mmol/L (3.5-4.5); SODIUM 143 mmol/L (135-145); TOTAL PROTEIN 6.1 g/dL (6.4-8.9); TRIGLYCERIDES 128 mg/dL (48-352); VLDL CHOLESTEROL 26 mg/dL
[2024-01-18 16:02] LABS: BASOPHILS % (AUTO) 0.3 %; EOSINOPHILS % (AUTO) 0.3 %; HCT - HEMATOCRIT 41.3 % (42.0-52.0); HGB - HEMOGLOBIN 11.8 g/dL (14.0-18.0); LYMPHOCYTES # (AUTO) 0.5 10^3/uL (1.5-3.5); LYMPHOCYTES % (AUTO) 4.5 %; MEAN CORPUSCULAR HGB CONC 28.6 g/dL (32.0-36.0); MEAN CORPUSCULAR VOLUME 80.4 fL (80.0-94.0); MONOCYTES # (AUTO) 0.9 10^3/uL (0.0-1.0); MONOCYTES % (AUTO) 7.6 %; NEUTROPHILS # (AUTO) 9.8 10^3/uL (1.5-6.6); PLT - PLATELET COUNT 172 10^3/uL (130-450); RED BLOOD COUNT 5.14 10^6/uL (4.70-6.10); RED CELL DISTRIBUTION WIDTH 16.9 % (12.0-15.0); WHITE BLOOD COUNT 11.5 x10^3/uL (4.8-10.8)
[2024-01-18 16:08] LABS: SLIDE REVIEW? Indicated
[2024-01-18 16:09] LABS: PLATELET ESTIMATE, MANUAL NORMAL (130-450,000) (NORMAL); PLATELET MORPHOLOGY NORMAL APPEARANCE (NORMAL); RBC MORPHOLOGY (MULTIPLE) 2+ ANISOCYTOSIS (NORMAL)
== END 2024-01-18 09:08 | disposition home or self-care (01) ==
LOC: LAB.S 09:07
PROVIDERS: ATTEND Nurse Practitioner Acute Care
DX: Z13.228 Encounter for screening for other metabolic disorders (principal); Z13.220 Encounter for screening for lipoid disorders; Z13.29 Encounter for screening for other suspected endocrine disorder; Z13.0 Encounter for screening for diseases of the blood and blood-forming organs and certain disorders involving the immune mechanism
CPT/HCPCS: 36415; 80053; 80061; 83721; 84443; 85025